=== PATIENT | female | born 1960 | race Caucasian/White ===

== ENCOUNTER 2020-12-18 20:18 | Outpatient (REF) | payer OTHER, SELFPAY ==
[2020-12-18 21:58] LABS: ALT 37 U/L (14-59); AST 41 U/L (15-37); Alkaline Phosphatase 83 U/L (46-116); Anion Gap 3.8 mmol/L (3-11); BUN 6 mg/dL (7-18); Bilirubin, Total 0.4 mg/dL (0.2-1.0); CO2 26.2 mmol/L (21.0-32.0); CREATININE 0.5 mg/dL (0.55-1.02); Calcium 9.4 mg/dL (8.5-10.1); Chloride 99 mmol/L (98-107); Glucose 53 mg/dL (74-106); Potassium 3.5 mmol/L (3.5-5.1); Sodium 129 mmol/L (136-145); Total Protein 6.9 g/dL (6.4-8.2)
== END 2020-12-18 20:19 | disposition home or self-care (01) ==
LOC: NCHCN 20:18
PROVIDERS: PCP Nurse Practitioner Family; Visit Provider Nurse Practitioner Community Health
DX: R79.89 Other specified abnormal findings of blood chemistry (principal); R63.6 Underweight
CPT/HCPCS: 80053

== ENCOUNTER 2020-12-23 16:13 | Outpatient (REF) | payer OTHER, SELFPAY ==
[2020-12-23 22:24] LABS: ALT 35 U/L (14-59); AST 40 U/L (15-37); Albumin 3.7 g/dL (3.4-5.0); Alkaline Phosphatase 105 U/L (46-116); Anion Gap 9.2 mmol/L (3-11); BUN 11 mg/dL (7-18); Bilirubin, Total 0.4 mg/dL (0.2-1.0); CO2 25.8 mmol/L (21.0-32.0); CREATININE 0.7 mg/dL (0.55-1.02); Chloride 104 mmol/L (98-107); Glucose 114 mg/dL (74-106); Potassium 4.6 mmol/L (3.5-5.1); Sodium 139 mmol/L (136-145); Total Protein 6.6 g/dL (6.4-8.2)
== END 2020-12-23 16:14 | disposition home or self-care (01) ==
LOC: NCHCN 16:13
PROVIDERS: PCP Nurse Practitioner Family; Visit Provider Nurse Practitioner Community Health
DX: E87.1 Hypo-osmolality and hyponatremia (principal)
CPT/HCPCS: 80053

== ENCOUNTER 2023-07-27 12:25 | Outpatient (REF) | payer OTHER, SELFPAY ==
--- NOTE | 2023-07-27 15:05 | PAPFT_PTH ---
PATIENT: Char Harrell LOC: [facility]#:[id number] AGE/SX: 62/F ROOM: RE07/27/[address]: Katelyn Chapa : 1960 BED: DIS: 07/27/2023 SPEC #: [id number] RECD: 07/28/23 12:47 STATUS: SHASHI REAide #: [id number] VIRAJ: 07/27/23 15:[address]: Katelyn Chapa DEPT: [facility] Cytology RECD BY: Frances Arora ENTERED: 07/28/23 12:47 SP TYPE: PAPFT OTHR DR: Xuan Mayen Tissues: 1 - CX/ENDOCX FOR PAP SMEARS Procedures: PAP THIN PREP/[facility] Screening HPV DNA PROBE Comments: [id number]
== END 2023-07-27 12:26 | disposition home or self-care (01) ==
LOC: NCHCN 12:25
PROVIDERS: PCP Nurse Practitioner Family; Visit Provider Family Medicine
DX: Z12.4 Encounter for screening for malignant neoplasm of cervix (principal); Z11.51 Encounter for screening for human papillomavirus (HPV)
CPT/HCPCS: 88142; 87624